=== PATIENT | female | born 1970 | race Caucasian/White ===

== ENCOUNTER → 2017-12-10 09:24 | Outpatient (CLI) | payer OTHER, SELFPAY ==
--- NOTE | 2017-12-10 09:28 | MM_ITS ---
MM Dig screening mamm BI w/CAD CAD Screening COMPARISON: Digital mammograms 11/28/2014 and 12/21/2013 INDICATION: Is no personal or family history of breast cancer. There have been previous biopsies on each breast for benign disease. TECHNIQUE: Standard CC and MLO images were obtained. R2 CAD reviewed. FINDINGS: Prominent heterogenic fibroglandular densities are seen in the upper outer quadrants of both breast slightly more prominent right breast than left. This may decrease the sensitivity mammography somewhat. A biopsy clip is seen 11:00 position right breast. There is no suspicious lesion in either breast and no suspicious microcalcifications. IMPRESSION: Moderately and heterogeneously dense parenchymal pattern with no suspicious lesion seen recommend yearly follow-up BI-RADS Category: 2 Benign Finding(s) RECOMMENDED FOLLOW-UP: 1YR - 1 YEAR FOLLOW-UP (A letter has been sent to the patient regarding results of the study.)
== END ==
PROVIDERS: PCP Nurse Practitioner Family; Visit Provider Nurse Practitioner Family
DX: Z12.31 Encounter for screening mammogram for malignant neoplasm of breast (principal)
CPT/HCPCS: 77067

== ENCOUNTER → 2019-02-09 12:44 | Outpatient (CLI) | payer OTHER, SELFPAY ==
--- NOTE | 2019-02-09 12:53 | MM_ITS ---
MM Dig mamm BI DX w/CAD, US breast RT complete, US breast LT complete INDICATION: Right breast lump ORDERING PHYSICIAN: Marina Peacock PATIENT AGE: 49 years COMPARISON: 12/10/2017, 12/08/2014 TECHNIQUE: Bilateral mammogram performed along with spot compression views of both sides and bilateral breast ultrasound FINDINGS: There is dense fibroglandular tissue which decreases the sensitivity of mammography Right breast: Asymmetric increased density is present in the central aspect of the right breast superiorly. This area measures approximately 5 x 5 cm. The posterior margin is obscured by overlying breast tissue. There is a biopsy clip in this region. Faint calcifications are present in this region however these have been present before and are not significantly changed. There is a small parenchymal opacity in the deep superior right breast at 4 mm not significantly changed. Right breast ultrasound: There is a 3 x 3 cm lobulated cyst in the 10:00 region of the right breast corresponding to the mammographic abnormality. Other smaller cysts are present in the right breast measuring up to 1 cm at the 11:00 region. There are small nodes in the right axilla. Left breast: Asymmetric density is present in the central aspect of the left breast in the retroareolar region. There is also some asymmetric density in the superior left breast as seen on the MLO view. A 1 cm opacity is present in the superior left breast possibly due to overlapping fibroglandular tissue. No malignant appearing mass or malignant appearing microcalcification. Left breast ultrasound: 5 mm cyst at 1:00 possibly corresponding to the area of asymmetric density. A 6 mm bilobular cyst is present at 11:00. There is some ductal dilatation in the retroareolar region. IMPRESSION: Probably benign findings as described above. The palpable abnormality in the right breast corresponds to a dominant cyst. No malignant appearing mass or malignant appearing microcalcifications. Asymmetric densities are present in both breasts which are probably benign. 6 month mammographic and sonographic follow-up recommended. Fine-needle aspiration could be performed of the palpable nodule if clinically desired for patient comfort and please. There are some faint calcifications in the superior aspect of the right breast probably benign. Six-month follow-up suggested. BI-RADS Category: 3 Probably Benign Finding Short Term Follow-up RECOMMENDED FOLLOW-UP: 6M - 6 MONTH FOLLOW-UP (A letter has been sent to the patient regarding results of the study.)
== END ==
PROVIDERS: PCP Internal Medicine Adolescent Medicine; Visit Provider Nurse Practitioner Family
DX: N63.10 Unspecified lump in the right breast, unspecified quadrant (principal)
CPT/HCPCS: 77066

== ENCOUNTER → 2019-02-10 10:06 | Outpatient (CLI) | payer OTHER, SELFPAY | PROVIDERS: PCP Nurse Practitioner Family; Visit Provider Nurse Practitioner Family | DX: N63.42 Unspecified lump in left breast, subareolar (principal); N63.10 Unspecified lump in the right breast, unspecified quadrant | CPT/HCPCS: 76641 ==